=== PATIENT | male | born 1970 | race Caucasian/White ===

== ENCOUNTER → 2020-08-26 09:57 | Outpatient (BNVA) | payer BC, SELFPAY | PROVIDERS: Family Provider Nurse Practitioner Family; PCP Nurse Practitioner Family; Visit Provider Internal Medicine Rheumatology | DX: M08.00 Unspecified juvenile rheumatoid arthritis of unspecified site (principal); Z79.899 Other long term (current) drug therapy; Z11.59 Encounter for screening for other viral diseases; M19.90 Unspecified osteoarthritis, unspecified site; G56.02 Carpal tunnel syndrome, left upper limb; Z86.16 Personal history of COVID-19 | CPT/HCPCS: 99204 ==

== ENCOUNTER 2020-08-26 11:25 | Outpatient (CLI) | payer BC, SELFPAY ==
--- NOTE | 2020-08-26 11:35 | XRR_ITS ---
PROCEDURE INFORMATION: Exam: XR Left Foot Exam date and time: 08/26/2020 12:09 PM Age: 49 years old Clinical indication: Screening exam; Other exterminator helper termite (current) drug therapy; Additional info: Z79.899 - other skilled nursing (current) drug therapy TECHNIQUE: Imaging protocol: XR Left foot. Views: 3 or more views. COMPARISON: No relevant prior studies available. FINDINGS: Bones/joints: There is subluxation at the left 4th and 5th MTP joints. No acute fracture or dislocation. There is dorsal osteophyte at the left talonavicular joint. No acute fracture. There is os vesalianum vs old nonunited fracture at the base of the left 5th metatarsal. Soft tissues: Normal. XR/XR foot LT min 3V* [id number] IMPRESSION: There are no acute concerning abnormalities.
--- NOTE | 2020-08-26 11:35 | XRR_ITS ---
PROCEDURE INFORMATION: Exam: XR Left Elbow Exam date and time: 08/26/2020 12:05 PM Age: 49 years old Clinical indication: Screening exam; Other [facility]; Additional info: Z79.899 - other [facility] TECHNIQUE: Imaging protocol: XR Left elbow. Views: 1 or 2 views. COMPARISON: No relevant prior studies available. FINDINGS: Bones/joints: A joint effusion is present with elevation of the posterior elbow joint fat pad. No fracture or other acute bony abnormalities are seen. Chronic degenerative changes are present with osteophyte formation on the distal humerus, the radius and ulna. There is mild joint space narrowing. No destructive changes are seen. Soft tissues: Normal. XR/XR elbow LT 2V [id number] IMPRESSION: 1. No fracture seen. 2. Joint effusion with chronic degenerative disease.
--- NOTE | 2020-08-26 11:35 | XRR_ITS ---
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 Views: 1 or 2 views. COMPARISON: No relevant prior studies available. FINDINGS: Bones/joints: The lateral view is suboptimal. No fracture or other acute abnormalities are seen. Chronic degenerative changes are present with small osteophyte formation on the distal humerus and the proximal radius and ulna. There is mild joint space narrowing. Soft tissues: Normal. XR/XR elbow RT 2V [id number] IMPRESSION: Chronic degenerative changes. No acute abnormality.
--- NOTE | 2020-08-26 11:35 | XRR_ITS ---
PROCEDURE INFORMATION: Exam: XR Right Hand Exam date and time: 08/26/2020 12:05 PM Age: 49 years old Clinical indication: Screening exam; Other [facility] (current) drug therapy; Additional info: Z79.899 - other [facility] (current) drug therapy TECHNIQUE: Imaging protocol: XR Right hand. Views: 3 or more views. COMPARISON: No relevant prior studies available. FINDINGS: Bones/joints: There is extensive fusion of the carpal joints. There is prominent narrowing and erosive changes involving the radial and ulnar carpal joints. There is prominent joint space narrowing with bony erosions and cystic changes involving the metacarpophalangeal joints and proximal interphalangeal joints. The DIP joints are spared. These findings may be due to rheumatoid arthritis. No acute abnormalities are seen. Soft tissues: Normal. XR/XR hand RT min 3V* [id number] IMPRESSION: There are extensive changes including fusion of the carpal joints with extensive joint space narrowing bony erosions and cystic changes consistent with rheumatoid arthritis. No acute abnormalities are seen.
--- NOTE | 2020-08-26 11:35 | XRR_ITS ---
PROCEDURE INFORMATION: Exam: XR Right Foot Exam date and time: 08/26/2020 12:07 PM Age: 49 years old Clinical indication: Screening exam; Other [facility] (current) drug therapy; Additional info: Z79.899 - other [facility] (current) drug therapy TECHNIQUE: Imaging protocol: XR Right foot. Views: 3 or more views. COMPARISON: No relevant prior studies available. FINDINGS: Bones/joints: There is deformity of the base of the 5th metatarsal bone consistent with old nonunited fracture. There is a bunion on the 1st metatarsal bone with hallux valgus. There is prominent narrowing of the metatarsophalangeal joints with bony erosion and cystic changes. The PIP joints are narrowed. These findings could be due to a thyroid arthritis. No recent fracture or other acute abnormality is seen. Soft tissues: Normal. XR/XR foot RT min 3V* [id number] IMPRESSION: 1. Old nonunited fracture of the base of the 5th metatarsal bone. 2. Prominent arthritic changes in the metatarsophalangeal joints consistent with rheumatoid arthritis. 3. Hallux valgus and bunion.
--- NOTE | 2020-08-26 11:35 | XRR_ITS ---
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 COMPARISON: No relevant prior studies available. FINDINGS: Lungs: Unremarkable. No consolidation. Pleural spaces: Unremarkable. No pleural effusion. No pneumothorax. Heart/Mediastinum: Unremarkable. No cardiomegaly. Bones/joints: Unremarkable. XR/XR chest 2V* [id number] IMPRESSION: No significant findings.
--- NOTE | 2020-08-26 11:35 | XRR_ITS ---
PROCEDURE INFORMATION: Exam: XR Left Hand Exam date and time: 08/26/2020 12:04 PM Age: 49 years old Clinical indication: Screening exam; Other permit agent (current) drug therapy; Additional info: Z79.899 - other longterm (current) drug therapy TECHNIQUE: Imaging protocol: XR Left hand. Views: 3 or more views. COMPARISON: No relevant prior studies available. FINDINGS: Bones/joints: There is extensive fusion of the carpal joints. There is prominent joint space narrowing bony erosion and cystic changes involving the metacarpophalangeal and proximal interphalangeal joints. There also erosive changes with narrowing of the radial and ulnar carpal joints and carpometacarpal joints. The DIP joints are spared. These findings may be secondary to rheumatoid arthritis. No fracture or other acute bony abnormalities are seen. Soft tissues: Normal. XR/XR hand LT min 3V* [id number] IMPRESSION: There are extensive changes including fusion of the carpal joints and extensive joint space narrowing bony erosions and cystic changes consistent with rheumatoid arthritis. No fracture seen.
[2020-08-26 13:48] LABS: Hepatitis B Core AB, Total Non-Reactive (Nonreactive); Hepatitis B Surface Antigen Non-Reactive (Nonreactive); Hepatitis C Virus Antibody Non-Reactive (Nonreactive)
[2020-08-26 13:53] LABS: 25 Hydroxy Vitamin D 73 ng/mL (30-100)
[2020-08-27 13:23] LABS: Cyclic Citrullinated Peptide >250 UNITS
[2020-08-28 15:33] LABS: Quantiferon Mitogen >10.00 IU/mL; Quantiferon Nil 0.02 IU/mL; Quantiferon TB Gold NEGATIVE (NEGATIVE)
== END 2020-08-26 11:26 | disposition home or self-care (01) ==
PROVIDERS: Visit Provider Internal Medicine Rheumatology
DX: M05.9 Rheumatoid arthritis with rheumatoid factor, unspecified (principal); Z79.899 Other long term (current) drug therapy; Z11.59 Encounter for screening for other viral diseases; Z11.1 Encounter for screening for respiratory tuberculosis
CPT/HCPCS: 36415; 71046; 73070; 73130; 73630; 82306; 86431; 86480; 86704; 86803; 87340

== ENCOUNTER → 2020-12-30 09:50 | Outpatient (BNVA) | payer BC, SELFPAY | PROVIDERS: PCP Family Medicine; Visit Provider Internal Medicine Rheumatology | DX: M08.00 Unspecified juvenile rheumatoid arthritis of unspecified site (principal); M19.90 Unspecified osteoarthritis, unspecified site; Z79.899 Other long term (current) drug therapy; G56.02 Carpal tunnel syndrome, left upper limb; Z71.89 Other specified counseling; Z86.16 Personal history of COVID-19 | CPT/HCPCS: 99214 ==

== ENCOUNTER → 2021-04-02 13:37 | Outpatient (BNVA) | payer BC, SELFPAY | PROVIDERS: PCP Family Medicine; Visit Provider Internal Medicine Rheumatology | DX: M05.79 Rheumatoid arthritis with rheumatoid factor of multiple sites without organ or systems involvement (principal); Z79.899 Other long term (current) drug therapy; Z71.89 Other specified counseling; G56.02 Carpal tunnel syndrome, left upper limb; Z86.16 Personal history of COVID-19 | CPT/HCPCS: 99214 ==

== ENCOUNTER → 2022-03-23 13:40 | Outpatient (BNVA) | payer BC, SELFPAY | PROVIDERS: PCP Family Medicine; Visit Provider Internal Medicine Rheumatology | DX: Z79.899 Other long term (current) drug therapy (principal); M05.79 Rheumatoid arthritis with rheumatoid factor of multiple sites without organ or systems involvement | CPT/HCPCS: 36415; 80076; 82565; 85025; 86140 ==